=== PATIENT | male | born 1940 | race Caucasian/White ===

== ENCOUNTER 2017-05-27 06:20 | Outpatient (CLI) | payer OTHER ==
[~2017-05-27 06:20] MED LIST: ALDACTONE25 MG; CALAN PO; CALAN SR 120MG120 MG; CARVEDILOL12.5 MG; CATAFLAN PO; CYMBALTA30 MG; DRAMAMINE LESS25 MG; ENALAPRIL MALEA10 MG; FOLIC ACID1 MG; FUROSEMIDE20 MG; GABAPENTIN100 MG; GLUCOPHAGE XR500 MG PO; ISOSORBIDE DINI30 MG; LANTUS SOL100 UNIT/1; LANTUS100 U/ML; METFORMIN HCL500 MG; METFORMIN HCL850 MG; NABUMETONE500 MG PO; PANADOL EXTRA500 MG PO; PAROXETINE HCL10 MG; PAROXETINE HCL40 MG; PAXIL40 MG PO; PERCOCET 5/3251 TAB PO; PROTONIX20 MG; PROTONIX40 MG PO; TRIAMTERENE HCT; WELLBUTRIN SR150 MG
== END 2017-05-27 06:29 | disposition home or self-care (01) ==
LOC: LAB 06:20
DX: E11.8 Type 2 diabetes mellitus with unspecified complications (principal); I10 Essential (primary) hypertension; E03.8 Other specified hypothyroidism; E78.2 Mixed hyperlipidemia

== ENCOUNTER 2017-07-08 07:11 | Outpatient (CLI) | payer OTHER | END 2017-07-08 09:16 | disposition home or self-care (01) | LOC: RAD 07:11 → MAMO-SONO 08:15 → RAD 09:16 | DX: M12.89 Other specific arthropathies, not elsewhere classified, multiple sites (principal); M19.90 Unspecified osteoarthritis, unspecified site; M46.47 Discitis, unspecified, lumbosacral region ==

== ENCOUNTER → 2017-08-03 06:25 | Outpatient (CLI) | payer OTHER | END | disposition home or self-care (01) | LOC: LAB 06:25 | DX: I10 Essential (primary) hypertension (principal); E07.89 Other specified disorders of thyroid ==

== ENCOUNTER 2017-09-09 06:22 | Outpatient (CLI) | payer OTHER | END 2017-09-09 06:28 | disposition home or self-care (01) | LOC: LAB 06:22 | DX: I10 Essential (primary) hypertension (principal); E11.9 Type 2 diabetes mellitus without complications; E03.8 Other specified hypothyroidism; E78.2 Mixed hyperlipidemia ==

== ENCOUNTER 2017-09-28 13:06 | Outpatient (CLI) | payer OTHER | END 2017-09-28 13:14 | disposition home or self-care (01) | LOC: RAD 501 13:06 | DX: M17.11 Unilateral primary osteoarthritis, right knee (principal) ==

== ENCOUNTER 2017-10-20 08:59 | Outpatient (CLI) | payer OTHER | END 2017-10-20 09:02 | disposition home or self-care (01) | LOC: RAD 08:59 | DX: M17.9 Osteoarthritis of knee, unspecified (principal); M12.9 Arthropathy, unspecified ==

== ENCOUNTER 2017-10-29 06:20 | Outpatient (CLI) | payer OTHER | END 2017-10-29 06:38 | disposition home or self-care (01) | LOC: LAB 06:20 | DX: E10.621 Type 1 diabetes mellitus with foot ulcer (principal) ==

== ENCOUNTER 2017-12-11 07:24 | Outpatient (CLI) | payer OTHER | END 2017-12-11 07:31 | disposition home or self-care (01) | LOC: LAB 07:24 | DX: I10 Essential (primary) hypertension (principal); E11.9 Type 2 diabetes mellitus without complications; E03.8 Other specified hypothyroidism; E78.2 Mixed hyperlipidemia ==

== ENCOUNTER 2017-12-16 07:40 | Outpatient (CLI) | payer OTHER | END 2017-12-16 11:42 | disposition home or self-care (01) | LOC: RX STUDY 07:40 | DX: M12.88 Other specific arthropathies, not elsewhere classified, other specified site (principal); M43.12 Spondylolisthesis, cervical region; M47.899 Other spondylosis, site unspecified; R13.10 Dysphagia, unspecified ==

== ENCOUNTER 2018-04-09 07:11 | Outpatient (CLI) | payer OTHER | END 2018-04-09 07:18 | disposition home or self-care (01) | LOC: LAB 07:11 | DX: I10 Essential (primary) hypertension (principal); E03.8 Other specified hypothyroidism; E11.9 Type 2 diabetes mellitus without complications; E78.2 Mixed hyperlipidemia; K21.9 Gastro-esophageal reflux disease without esophagitis; D64.0 Hereditary sideroblastic anemia ==

== ENCOUNTER 2018-04-11 06:12 | Outpatient (CLI) | payer OTHER | END 2018-04-11 06:34 | disposition home or self-care (01) | LOC: LAB 06:12 | DX: I10 Essential (primary) hypertension (principal); E11.9 Type 2 diabetes mellitus without complications; E03.8 Other specified hypothyroidism; E78.2 Mixed hyperlipidemia; K92.1 Melena; D64.0 Hereditary sideroblastic anemia ==

== ENCOUNTER → 2018-07-01 06:25 | Outpatient (CLI) | payer OTHER | END | disposition home or self-care (01) | LOC: LAB 06:25 | DX: N39.0 Urinary tract infection, site not specified (principal) ==

== ENCOUNTER 2018-07-01 07:21 | Outpatient (CLI) | payer OTHER | END 2018-07-01 07:24 | disposition home or self-care (01) | LOC: RAD 07:21 | DX: M46.47 Discitis, unspecified, lumbosacral region (principal); R10.9 Unspecified abdominal pain ==

== ENCOUNTER 2018-07-16 07:13 | Outpatient (CLI) | payer OTHER | END 2018-07-16 08:49 | disposition home or self-care (01) | LOC: LAB 07:13 | DX: E11.9 Type 2 diabetes mellitus without complications (principal); I10 Essential (primary) hypertension; E03.8 Other specified hypothyroidism; E78.2 Mixed hyperlipidemia ==

== ENCOUNTER 2018-07-19 08:41 | Outpatient (CLI) | payer OTHER | END 2018-07-19 08:51 | disposition home or self-care (01) | LOC: TOM 08:41 | DX: Z96.652 Presence of left artificial knee joint (principal); M19.90 Unspecified osteoarthritis, unspecified site; M46.47 Discitis, unspecified, lumbosacral region; M17.0 Bilateral primary osteoarthritis of knee ==

== ENCOUNTER 2018-09-06 08:08 | Emergency (ER) | payer OTHER ==
[~2018-09-06] VITALS: Ht 162.6 cm; Wt 76.2 kg
== END 2018-09-06 09:17 | disposition home or self-care (01) ==
LOC: ER 08:08
DX: R07.89 Other chest pain (principal)

== ENCOUNTER 2018-10-27 06:47 | Outpatient (CLI) | payer OTHER | END 2018-10-27 07:08 | disposition home or self-care (01) | LOC: LAB 06:47 | DX: E03.8 Other specified hypothyroidism (principal); I10 Essential (primary) hypertension; E11.9 Type 2 diabetes mellitus without complications; E78.2 Mixed hyperlipidemia ==

== ENCOUNTER 2018-12-10 07:08 | Outpatient (CLI) | payer OTHER | END 2018-12-10 07:15 | disposition home or self-care (01) | LOC: LAB 07:08 | DX: E11.9 Type 2 diabetes mellitus without complications (principal) ==

== ENCOUNTER 2019-02-23 06:22 | Outpatient (CLI) | payer OTHER | END 2019-02-23 06:27 | disposition home or self-care (01) | LOC: LAB 06:22 | DX: E03.8 Other specified hypothyroidism (principal); E78.2 Mixed hyperlipidemia; I10 Essential (primary) hypertension; E11.9 Type 2 diabetes mellitus without complications ==

== ENCOUNTER 2019-06-29 07:53 | Outpatient (CLI) | payer OTHER | END 2019-06-29 07:58 | disposition home or self-care (01) | LOC: LAB 07:53 | DX: I10 Essential (primary) hypertension (principal); E11.9 Type 2 diabetes mellitus without complications; E03.8 Other specified hypothyroidism; E78.2 Mixed hyperlipidemia ==

== ENCOUNTER → 2019-10-28 07:50 | Outpatient (CLI) | payer OTHER | END | disposition home or self-care (01) | LOC: LAB 07:50 | PROVIDERS: ATTEND Internal Medicine Cardiovascular Disease | DX: E03.8 Other specified hypothyroidism (principal); I10 Essential (primary) hypertension; E11.9 Type 2 diabetes mellitus without complications; E78.2 Mixed hyperlipidemia ==

== ENCOUNTER 2020-02-17 07:18 | Outpatient (CLI) | payer OTHER | END 2020-02-17 07:21 | disposition home or self-care (01) | LOC: LAB 07:18 | PROVIDERS: ATTEND Internal Medicine Cardiovascular Disease | DX: I10 Essential (primary) hypertension (principal); E11.9 Type 2 diabetes mellitus without complications; E03.8 Other specified hypothyroidism; E78.2 Mixed hyperlipidemia ==

== ENCOUNTER → 2020-02-28 | Outpatient (CLI) | payer OTHER | END | disposition home or self-care (01) | LOC: SONOGRAMA 14:00 | PROVIDERS: ATTEND Internal Medicine Cardiovascular Disease | DX: N60.01 Solitary cyst of right breast (principal); N64.59 Other signs and symptoms in breast ==

== ENCOUNTER 2020-06-25 13:11 | Outpatient (CLI) | payer OTHER | END 2020-06-25 13:17 | disposition home or self-care (01) | LOC: RAD 13:11 | PROVIDERS: ATTEND Internal Medicine Rheumatology | DX: M17.11 Unilateral primary osteoarthritis, right knee (principal); Z96.652 Presence of left artificial knee joint ==

== ENCOUNTER 2020-06-29 07:12 | Outpatient (CLI) | payer OTHER | END 2020-06-29 07:18 | disposition home or self-care (01) | LOC: LAB 07:12 | PROVIDERS: ATTEND Internal Medicine Cardiovascular Disease | DX: N40.0 Benign prostatic hyperplasia without lower urinary tract symptoms (principal); I10 Essential (primary) hypertension; E11.9 Type 2 diabetes mellitus without complications; E03.9 Hypothyroidism, unspecified; R30.1 Vesical tenesmus; Z12.11 Encounter for screening for malignant neoplasm of colon ==

== ENCOUNTER → 2020-07-01 06:24 | Outpatient (CLI) | payer OTHER | END | disposition home or self-care (01) | LOC: LAB 06:24 | PROVIDERS: ATTEND Internal Medicine Cardiovascular Disease | DX: I10 Essential (primary) hypertension (principal); E11.9 Type 2 diabetes mellitus without complications; E03.8 Other specified hypothyroidism; Z12.11 Encounter for screening for malignant neoplasm of colon; N40.0 Benign prostatic hyperplasia without lower urinary tract symptoms ==

== ENCOUNTER → 2020-12-03 06:17 | Outpatient (CLI) | payer OTHER | END | disposition home or self-care (01) | LOC: LAB 06:17 | PROVIDERS: ATTEND Internal Medicine Cardiovascular Disease | DX: I10 Essential (primary) hypertension (principal); E11.9 Type 2 diabetes mellitus without complications; E03.8 Other specified hypothyroidism; E78.2 Mixed hyperlipidemia ==

== ENCOUNTER 2021-04-26 07:25 | Outpatient (CLI) | payer OTHER | END 2021-04-26 07:32 | disposition home or self-care (01) | LOC: LAB 07:25 | PROVIDERS: ATTEND Internal Medicine Cardiovascular Disease | DX: I10 Essential (primary) hypertension (principal); E11.9 Type 2 diabetes mellitus without complications; E03.9 Hypothyroidism, unspecified; E78.2 Mixed hyperlipidemia; N40.0 Benign prostatic hyperplasia without lower urinary tract symptoms ==

== ENCOUNTER 2021-04-28 06:28 | Outpatient (CLI) | payer OTHER | END 2021-04-28 06:29 | disposition home or self-care (01) | LOC: LAB 06:28 | PROVIDERS: ATTEND Internal Medicine Cardiovascular Disease | DX: I10 Essential (primary) hypertension (principal); E11.9 Type 2 diabetes mellitus without complications; E03.5 Myxedema coma ==

== ENCOUNTER 2021-07-17 11:01 | Outpatient (CLI) | payer OTHER | END 2021-07-17 11:06 | disposition home or self-care (01) | LOC: RAD 11:01 | PROVIDERS: ATTEND Internal Medicine Rheumatology | DX: M17.11 Unilateral primary osteoarthritis, right knee (principal) ==

== ENCOUNTER 2021-08-02 07:10 | Outpatient (CLI) | payer OTHER | END 2021-08-02 07:14 | disposition home or self-care (01) | LOC: LAB 07:10 | PROVIDERS: ATTEND Internal Medicine Cardiovascular Disease | DX: D64.9 Anemia, unspecified (principal); R10.9 Unspecified abdominal pain; E78.5 Hyperlipidemia, unspecified; E55.9 Vitamin D deficiency, unspecified; E11.9 Type 2 diabetes mellitus without complications ==

== ENCOUNTER 2021-08-09 07:05 | Outpatient (CLI) | payer OTHER | END 2021-08-09 08:23 | disposition home or self-care (01) | LOC: LAB 07:05 | PROVIDERS: ATTEND Internal Medicine Cardiovascular Disease | DX: E03.9 Hypothyroidism, unspecified (principal); I10 Essential (primary) hypertension; E11.9 Type 2 diabetes mellitus without complications; E78.2 Mixed hyperlipidemia ==

== ENCOUNTER 2021-09-03 07:16 | Outpatient (CLI) | payer OTHER | END 2021-09-03 07:35 | disposition home or self-care (01) | LOC: TOM 07:16 | PROVIDERS: ATTEND Internal Medicine Cardiovascular Disease | DX: R13.10 Dysphagia, unspecified (principal); R22.1 Localized swelling, mass and lump, neck ==

== ENCOUNTER 2021-09-08 07:53 | Outpatient (CLI) | payer OTHER | END 2021-09-08 07:55 | disposition home or self-care (01) | LOC: SONOGRAMA 07:53 | PROVIDERS: ATTEND Pathology Anatomic Pathology & Clinical Pathology | DX: C07 Malignant neoplasm of parotid gland (principal) ==

== ENCOUNTER 2021-12-15 06:44 | Outpatient (CLI) | payer OTHER | END 2021-12-15 10:35 | disposition home or self-care (01) | LOC: LAB 06:44 | PROVIDERS: ATTEND Internal Medicine Cardiovascular Disease | DX: I10 Essential (primary) hypertension (principal); E11.9 Type 2 diabetes mellitus without complications; E03.9 Hypothyroidism, unspecified; E78.2 Mixed hyperlipidemia ==

== ENCOUNTER → 2022-05-12 07:50 | Outpatient (CLI) | payer OTHER | END | disposition home or self-care (01) | LOC: LAB 07:50 | PROVIDERS: ATTEND Internal Medicine Cardiovascular Disease | DX: I10 Essential (primary) hypertension (principal); E11.9 Type 2 diabetes mellitus without complications; E03.9 Hypothyroidism, unspecified; E78.2 Mixed hyperlipidemia; Z12.11 Encounter for screening for malignant neoplasm of colon; E55.9 Vitamin D deficiency, unspecified; N40.0 Benign prostatic hyperplasia without lower urinary tract symptoms ==

== ENCOUNTER → 2022-05-18 12:53 | Outpatient (CLI) | payer OTHER | END | disposition home or self-care (01) | LOC: LAB 12:53 | PROVIDERS: ATTEND Internal Medicine Cardiovascular Disease | DX: Z12.11 Encounter for screening for malignant neoplasm of colon (principal); I10 Essential (primary) hypertension; E11.9 Type 2 diabetes mellitus without complications; E03.9 Hypothyroidism, unspecified; E78.2 Mixed hyperlipidemia; N40.0 Benign prostatic hyperplasia without lower urinary tract symptoms; E55.9 Vitamin D deficiency, unspecified ==

== ENCOUNTER 2022-10-19 06:23 | Outpatient (CLI) | payer OTHER | END 2022-10-19 06:24 | disposition home or self-care (01) | LOC: LAB 06:23 | PROVIDERS: ATTEND Internal Medicine Cardiovascular Disease | DX: I10 Essential (primary) hypertension (principal); E11.9 Type 2 diabetes mellitus without complications; E03.9 Hypothyroidism, unspecified; E78.2 Mixed hyperlipidemia ==

== ENCOUNTER 2023-02-22 06:45 | Outpatient (CLI) | payer OTHER ==
[2023-02-22 07:55] LABS: HEMATOCRIT 33.7 % (39.0-48.0); HEMOGLOBIN 11.5 g/dL (13-16.00); MEAN CELL VOLUME 96.5 fL (80.0-100.00); MEAN CORPUSCULAR HGB CONC 34.2 g/dl (32.0-36.0); PLATELET COUNT 317 K/uL (150-450); RED BLOOD COUNT 3.49 M/uL (4.00-6.00)
[2023-02-22 08:00] LABS: PH,URINE 5.5 (5.0-8.0); URINE APPEARANCE Clear; URINE BILIRRUBIN Negative (NEGATIVE); URINE BLOOD Negative; URINE COLOR Yellow; URINE LEUKOCYTE Negative; URINE NITRATE Negative; URINE PROTEIN Negative (NEGATIVE); URINE UROBILINOGEN 0.2 E.U./dl
[2023-02-22 08:01] LABS: URINE EPITHELIAL CELLS 2.6 uL (0.0-38.8); URINE WBC 12.2 uL (0.0-23.2)
[2023-02-22 08:39] LABS: CALCIUM 10.5 mg/dL (8.5-10.1); CHOL HDL RATIO 1.9 (0-5.0); CREATININE SERUM 1.23 mg/dL (0.70-1.30); GFR 56.48; POTASSIUM 5.18 mEq/L (3.5-5.1)
[2023-02-22 09:43] LABS: URINE BACTERIA 3.7 uL (0.0-1933); URINE GLUCOSE >=1000 MG/DL (NEGATIVE); URINE RBC 0.4 uL (0.0-20.8)
== END 2023-02-22 06:46 | disposition home or self-care (01) ==
LOC: LAB 06:45
PROVIDERS: ATTEND Internal Medicine Cardiovascular Disease
DX: I10 Essential (primary) hypertension (principal); E11.9 Type 2 diabetes mellitus without complications; E78.2 Mixed hyperlipidemia

== ENCOUNTER → 2023-04-12 | Outpatient (CLI) | payer OTHER | END | disposition home or self-care (01) | LOC: RAD 11:57 | PROVIDERS: ATTEND Internal Medicine Cardiovascular Disease | DX: M17.11 Unilateral primary osteoarthritis, right knee (principal); Z96.651 Presence of right artificial knee joint ==

== ENCOUNTER 2023-06-28 07:02 | Outpatient (CLI) | payer OTHER ==
[2023-06-28 08:42] LABS: HEMATOCRIT 38.1 % (39.0-48.0); HEMOGLOBIN 12.8 g/dL (13-16.00); MEAN CELL VOLUME 91.8 fL (80.0-100.00); MEAN CORPUSCULAR HEMOGLOBIN 30.7 pg (27.00-32.0); MEAN CORPUSCULAR HGB CONC 33.5 g/dl (32.0-36.0); PLATELET COUNT 337 K/uL (150-450); RED BLOOD COUNT 4.15 M/uL (4.00-6.00)
[2023-06-28 08:43] LABS: URINE APPEARANCE Cloudy; URINE BILIRRUBIN Negative (NEGATIVE); URINE BLOOD Negative; URINE COLOR Yellow; URINE GLUCOSE Negative (NEGATIVE); URINE LEUKOCYTE Trace; URINE NITRATE Negative; URINE PROTEIN Negative (NEGATIVE); URINE UROBILINOGEN 0.2 E.U./dl
[2023-06-28 08:48] LABS: URINE BACTERIA 183.8 uL (0.0-1933); URINE EPITHELIAL CELLS 5.5 uL (0.0-38.8); URINE WBC 11.4 uL (0.0-23.2)
[2023-06-28 09:46] LABS: URINE RBC 1.4 uL (0.0-20.8)
[2023-06-28 10:03] LABS: ALBUMIN 4.4 gm/dL (3.4-5.0); BILIRUBIN TOTAL 0.99 mg/dL (0.3-1.2); CREATININE SERUM 1.52 mg/dL (0.70-1.30); GFR 44.23; GLOBULINA 3.4 G/DL (2.4-3.5); PROSTATIC SPECIFIC ANTIGEN 0.753 NG/ML (0.010-4.00); T4 TOTAL 7.4 UG/DL (4.5-12.1); TOTAL PROTEIN 7.8 gm/dL (6.4-8.2); TSH 0.368 uIU/mL (0.358-3.74)
[2023-06-28 10:51] LABS: POTASSIUM 6.05 mEq/L (3.5-5.1)
[2023-06-28 13:23] LABS: T3 TOTAL 0.94 ng/ml (0.846-2.02); VITAMIN D3 25 HYDROXY 74.59 ng/ml (30-120)
== END 2023-06-28 07:04 | disposition home or self-care (01) ==
LOC: LAB 07:02
PROVIDERS: ATTEND Internal Medicine Cardiovascular Disease
DX: I10 Essential (primary) hypertension (principal); E11.9 Type 2 diabetes mellitus without complications; E03.9 Hypothyroidism, unspecified; E55.9 Vitamin D deficiency, unspecified; N40.0 Benign prostatic hyperplasia without lower urinary tract symptoms; E78.2 Mixed hyperlipidemia; Z12.11 Encounter for screening for malignant neoplasm of colon

== ENCOUNTER 2023-10-13 12:26 | Emergency (ER) | payer OTHER ==
[~2023-10-13] VITALS: Ht 170.2 cm; Wt 63.5 kg
[2023-10-13] MEDS ORDERED: CARVEDILOL12.5 M1 PO (12:43)
[2023-10-13] MEDS ORDERED: GABAPENTIN600 MG PO (12:43)
[2023-10-13] MEDS ORDERED: GLUMETZA500 MG PO (12:44)
[2023-10-13] MEDS ORDERED: NABUMETONE750 MG PO (12:44)
[2023-10-13] MEDS ORDERED: DRAMAMINE LESS25 MG PO (12:44)
[2023-10-13] MEDS ORDERED: PANTOPRAZOLE SO40 M2 PO (12:45)
[2023-10-13] MEDS ORDERED: ISOSORBIDE DINI30 MG PO (12:45)
[2023-10-13] MEDS ORDERED: PEPCID40 MG PO (12:46)
[2023-10-13] MEDS ORDERED: LANOXIN125 MCG PO (12:46)
[2023-10-13] MEDS ORDERED: VAZALORE81 MG PO (12:46)
[2023-10-13] MEDS ORDERED: DEXTROSE 5 % AND 0.9 % NACL 500 ML IV STA (13:09)
[2023-10-13 13:46] LABS: HEMOGLOBIN 12.9 g/dL (13-16.00); PLATELET COUNT 354 K/uL (150-450); RED BLOOD COUNT 4.04 M/uL (4.00-6.00); RED CELL DISTRIBUTION WIDTH 16.3 % (11.5-14.5)
[2023-10-13] MEDS ORDERED: Dextrose ORAL GEL 37.5GM GEL PO ONE (14:13)
[2023-10-13 14:29] LABS: CALCIUM 10.5 mg/dL (8.5-10.1); CREATININE SERUM 1.12 mg/dL (0.70-1.30); GFR 62.92; POTASSIUM 4.86 mEq/L (3.5-5.1)
[2023-10-13 15:30] LABS: URINE APPEARANCE Clear; URINE BILIRRUBIN Negative (NEGATIVE); URINE BLOOD Negative; URINE COLOR Yellow; URINE GLUCOSE Negative (NEGATIVE); URINE LEUKOCYTE Trace; URINE NITRATE Negative; URINE PROTEIN 30 (NEGATIVE); URINE UROBILINOGEN 0.2 E.U./dl
[2023-10-13 15:32] LABS: URINE BACTERIA 8.8 uL (0.0-1933); URINE RBC 5.6 uL (0.0-20.8); URINE WBC 10.7 uL (0.0-23.2)
[2023-10-13 15:35] LABS: URINE EPITHELIAL CELLS 0.7 uL (0.0-38.8)
[2023-10-13] MEDS ORDERED: DEXTROSE 50 % IN WATER 0.5 G/ML VIAL IV ONE (15:37)
[2023-10-13] MEDS ORDERED: DEXTROSE 50 % IN WATER 0.5 G/ML VIAL IV STA (15:51)
== END 2023-10-13 16:59 | disposition home or self-care (01) ==
LOC: ER 12:26
PROVIDERS: General Practice
DX: E11.649 Type 2 diabetes mellitus with hypoglycemia without coma (principal); I10 Essential (primary) hypertension; E11.9 Type 2 diabetes mellitus without complications; Z79.84 Long term (current) use of oral hypoglycemic drugs; Z88.0 Allergy status to penicillin; Z88.1 Allergy status to other antibiotic agents
CPT/HCPCS: 36415; 93005; 96365; 99282; J3490 ×2

== ENCOUNTER → 2023-10-18 | Outpatient (CLI) | payer OTHER ==
[~2023-10-18] MED LIST changes: +CARVEDILOL12.5 M1 PO; +DRAMAMINE LESS25 MG PO; +GABAPENTIN600 MG PO; +GLUMETZA500 MG PO; +ISOSORBIDE DINI30 MG PO; +LANOXIN125 MCG PO; +NABUMETONE750 MG PO; +PANTOPRAZOLE SO40 M2 PO; +PEPCID40 MG PO; +VAZALORE81 MG PO
[2023-10-18 07:19] LABS: HEMATOCRIT 35.1 % (39.0-48.0); MEAN CELL VOLUME 92.9 fL (80.0-100.00); MEAN CORPUSCULAR HEMOGLOBIN 31.8 pg (27.00-32.0); MEAN CORPUSCULAR HGB CONC 34.2 g/dl (32.0-36.0); PLATELET COUNT 325 K/uL (150-450); RED BLOOD COUNT 3.77 M/uL (4.00-6.00); RED CELL DISTRIBUTION WIDTH 16.3 % (11.5-14.5)
[2023-10-18 07:21] LABS: URINE APPEARANCE Clear; URINE BILIRRUBIN Negative (NEGATIVE); URINE BLOOD Negative; URINE COLOR Yellow; URINE LEUKOCYTE Small; URINE NITRATE Negative; URINE UROBILINOGEN 0.2 E.U./dl
[2023-10-18 07:25] LABS: URINE BACTERIA 60.4 uL (0.0-1933); URINE EPITHELIAL CELLS 16.5 uL (0.0-38.8); URINE RBC 4.7 uL (0.0-20.8); URINE WBC 357.2 uL (0.0-23.2)
[2023-10-18 07:35] LABS: URINE GLUCOSE 250 MG/DL (NEGATIVE); URINE PROTEIN 100 (NEGATIVE)
[2023-10-18 08:38] LABS: ALBUMIN 3.9 gm/dL (3.4-5.0); CALCIUM 10.8 mg/dL (8.5-10.1); CHOL HDL RATIO 3.9 (0-5.0); CREATININE SERUM 1.21 mg/dL (0.70-1.30); GFR 57.55; POTASSIUM 5.29 mEq/L (3.5-5.1)
== END | disposition home or self-care (01) ==
LOC: LAB 06:30
PROVIDERS: ATTEND Internal Medicine Cardiovascular Disease
DX: E78.9 Disorder of lipoprotein metabolism, unspecified (principal); I10 Essential (primary) hypertension; E11.9 Type 2 diabetes mellitus without complications; E03.9 Hypothyroidism, unspecified

== ENCOUNTER 2024-05-24 04:29 | Emergency (ER) | payer OTHER ==
[~2024-05-24] VITALS: Ht 162.6 cm; Wt 68.0 kg
[2024-05-24 06:46] LABS: HEMATOCRIT 36.2 % (39.0-48.0); HEMOGLOBIN 12.3 g/dL (13-16.00); MEAN CELL VOLUME 92.8 fL (80.0-100.00); MEAN CORPUSCULAR HEMOGLOBIN 31.4 pg (27.00-32.0); MEAN CORPUSCULAR HGB CONC 33.9 g/dl (32.0-36.0); PLATELET COUNT 355 K/uL (150-450); RED CELL DISTRIBUTION WIDTH 15.5 % (11.5-14.5)
[2024-05-24 07:14] LABS: ALBUMIN 4.2 gm/dL (3.4-5.0); BILIRUBIN TOTAL 0.71 mg/dL (0.3-1.2); CREATININE SERUM 1.45 mg/dL (0.70-1.30); GFR 46.59; GLOBULINA 3.4 G/DL (2.4-3.5); POTASSIUM 5.1 mEq/L (3.5-5.1); TOTAL PROTEIN 7.6 gm/dL (6.4-8.2)
[2024-05-24] MEDS ORDERED: INSULIN REGULAR, HUMAN 1,000 UNIT/10 ML UNITS IV STA (07:23)
[2024-05-24 07:29] LABS: URINE APPEARANCE Clear; URINE BILIRRUBIN Negative (NEGATIVE); URINE BLOOD Negative; URINE COLOR Yellow; URINE KETONE Negative (NEGATIVE); URINE LEUKOCYTE Negative; URINE NITRATE Negative; URINE PROTEIN 30 (NEGATIVE)
[2024-05-24] MEDS ORDERED: 0.9 % SODIUM CHLORIDE 500 ML IV ONE (07:30)
[2024-05-24 07:36] LABS: URINE BACTERIA 9.7 uL (0.0-1933); URINE EPITHELIAL CELLS 4.4 uL (0.0-38.8); URINE WBC 31.6 uL (0.0-23.2)
[2024-05-24 07:44] LABS: URINE CAST 0.44 uL (0.0-1.40); URINE GLUCOSE >=1000 MG/DL (NEGATIVE)
== END 2024-05-24 12:51 | disposition home or self-care (01) ==
LOC: ER 04:29
PROVIDERS: General Practice
DX: E29.9 Testicular dysfunction, unspecified (principal); R73.9 Hyperglycemia, unspecified; I10 Essential (primary) hypertension; Z79.84 Long term (current) use of oral hypoglycemic drugs; Z88.1 Allergy status to other antibiotic agents; Z88.0 Allergy status to penicillin; Z91.018 Allergy to other foods
CPT/HCPCS: 36415; 76870; 96365; 96366; 99284; J1815; J7042